=== PATIENT | female | born 1965 | race Caucasian/White ===

== ENCOUNTER 2017-01-14 07:02 | Day surgery (SDC) | payer BC ==
--- NOTE | ~2017-01-14 | EGD ---
EGD REPORT [facility] [address] [address] NAME: GENE OCONNELL : [birth year] STATUS : REG [facility] PAT#: [id number] AGE: 51 ADM/REG DATE : 01/14/17 MR#: [id number] REPORT SERV DATE: 01/14/17 DICTATED BY: JOE RIVERS. DATE: 01/14/17 REPORT STATUS : Draft [facility]ANSCRIBED BY: [facility] DATE: 01/14/17 [facility] Patient Name: Gene Oconnell Date of : 1965 Attending MD: JOE RIVERS MD Procedure Date No Time: 01/14/2017 Procedure: Colonoscopy Indications: Colon cancer screening in patient at increased risk: Family history of colon polyps. Patient Profile: Informed consent was obtained from the patient by me prior to the procedure. Risks, benefits, and alternatives were discussed including the risk of bleeding, perforation, infection, reaction to medicine, missed lesion, and cardiopulmonary complications. Referring MD: ASHLEY MONTAGUE Medicines: Monitored Anesthesia Care Complications: No immediate complications. Procedure: After I obtained informed consent, the scope was passed under direct vision. Throughout the procedure, the patient's blood pressure, pulse, and oxygen saturations were monitored continuously. The PCF H190L [id number] was introduced through the anus and advanced to the cecum, identified by appendiceal orifice and ileocecal valve. The colonoscope was slowly withdrawn with careful examination all mucosal surfaces including specific attention around flexures and tip deflection behind folds; retroflexion performed in rectum. The colonoscopy was performed without difficulty. The patient tolerated the procedure well. The quality of the bowel preparation was adequate. The ileocecal valve, appendiceal orifice and rectum were photographed. Findings: A sessile polyp was found in the proximal ascending colon. The polyp was 10 mm in size. The polyp was removed with a cold snare. Resection and retrieval were complete. A sessile polyp was found in the descending colon. The polyp was 7 mm in size. The polyp was removed with a cold biopsy forceps. Resection and retrieval were complete. Multiple medium-mouthed diverticula were found in the sigmoid colon and in the descending colon. A diffuse area of moderately congested mucosa was found in the sigmoid colon. Internal hemorrhoids were found, and they were mild. EGD REPORT [address] [address] NAME: GENE OCONNELL : [birth year] STATUS : REG [facility]#: [id number] AGE: 51 ADM/REG DATE : 01/14/17 MR#: [id number] REPORT SERV DATE: 01/14/17 DICTATED BY: JOE RIVERS DATE: 01/14/17 REPORT STATUS : Draft TRANSCRIBED BY: [facility] DATE: 01/14/17 Impression: - One 10 mm polyp in the proximal ascending colon. Resected and retrieved. - One 7 mm polyp in the descending colon. Resected and retrieved. - Diverticulosis in the sigmoid colon and in the descending colon. - Congested mucosa in the sigmoid colon. - Internal hemorrhoids. Recommendation: - Patient has a contact number available for emergencies. The signs and symptoms of potential delayed complications were discussed with the patient. Return to normal activities tomorrow. Written discharge instructions were provided to the patient. - Regular diet. - Continue present medications. - Await pathology results. - Repeat colonoscopy for surveillance based on pathology results. - Refer Dr. Jones re: recurrent diverticulitis. - Take probiotic VSL #3 daily. Procedure Code(s): --- Professional --- 36026, Colonoscopy, flexible, proximal to splenic flexure; with removal of tumor(s), polyp(s), or other lesion(s) by snare technique 69651, 59, Colonoscopy, flexible, proximal to splenic flexure; with biopsy, single or multiple Diagnosis Code(s): --- Professional --- D12.4, Benign neoplasm of descending colon D12.2, Benign neoplasm of ascending colon K64.8, Other hemorrhoids K57.30, Diverticulosis of large intestine without perforation or abscess without bleeding K63.89, Other specified diseases of intestine Z12.11, Encounter for screening for malignant neoplasm of colon Z83.71, Family history of colonic polyps CPT copyright 2013 [employer]. All rights reserved. The codes documented in this report are preliminary and upon geometry tutor review may be revised to meet current compliance requirements. EGD REPORT [facility] [address] [address] NAME: GENE OCONNELL : [birth year] STATUS : REG [facility] PAT#: [id number] AGE: 51 ADM/REG DATE : 01/14/17 MR#: [id number] REPORT SERV DATE: 01/14/17 DICTATED BY: JOE RIVERS. DATE: 01/14/17 REPORT STATUS : Draft TRANSCRIBED BY: [employer] [facility] [employer] DATE: 01/14/17 JOE RIVERS MD 01/14/2017 9:15 AM This report has been signed electronically. Number of Addenda: 0 Note Initiated On: 01/14/2017 8:38 AM Scope Withdrawal Time 0 hours 18 minutes 21 seconds [address] [address]
[~2017-01-14 07:02] MED LIST: ADDERALL20 MG PO; CELEXA40 MG PO; FISH-EPA1000 MG PO; LINZESS 290 M290 MCG PO; PROMETRIUM PO; SYN075 PO; ULTRAM50 PO; ZOFRAN4 PO
[2017-02-06] MEDS ORDERED: TESS PO (11:24)
== END 2017-01-14 23:59 | disposition home or self-care (01) ==
LOC: DMU 07:02
PROVIDERS: Internal Medicine Gastroenterology
PROC: 0DBM8ZZ Excision of Descending Colon, Via Natural or Artificial Opening Endoscopic (ICD-10-PCS; principal; 2017-01-14 08:00)
PROC: 0DBK8ZZ Excision of Ascending Colon, Via Natural or Artificial Opening Endoscopic (ICD-10-PCS; 2017-01-14 08:00)
DX: Z12.11 Encounter for screening for malignant neoplasm of colon (principal); D12.2 Benign neoplasm of ascending colon; D12.4 Benign neoplasm of descending colon; K57.30 Diverticulosis of large intestine without perforation or abscess without bleeding; K64.8 Other hemorrhoids; K63.89 Other specified diseases of intestine; J45.909 Unspecified asthma, uncomplicated; E03.9 Hypothyroidism, unspecified; F41.9 Anxiety disorder, unspecified; F32.9 Major depressive disorder, single episode, unspecified; F90.9 Attention-deficit hyperactivity disorder, unspecified type; Z83.71 Family history of colonic polyps; Z85.41 Personal history of malignant neoplasm of cervix uteri; Z88.8 Allergy status to other drugs, medicaments and biological substances; Z91.013 Allergy to seafood; Z79.899 Other long term (current) drug therapy; Z98.890 Other specified postprocedural states
CPT/HCPCS: 88305; J2405

== ENCOUNTER 2017-01-15 23:05 | Emergency (ER) | payer BC ==
[2017-01-15 17:46] LABS: BASOPHILS 0.3 %; BASOPHILS ABSOLUTE 0.01 10/3/uL (0.0-0.16); EOSINOPHILS 0 %; ER CBC TAT 0 Hrs 05 Mins; HEMATOCRIT 41.4 % (36.0-48.0); HEMOGLOBIN 14.2 g/dL (12.0-16.0); IMMATURE GRANULOCYTES 0.5 %; IMMATURE GRANULOCYTES ABSOLUTE 0.02 10/3/uL (0.0-0.11); LYMPHOCYTES 31.7 %; LYMPHOCYTES ABSOLUTE 1.19 10/3/uL (0.67-4.30); MANUAL DIFF NO %; MEAN CORPUS HGB CONC 34.3 g/dL (32.0-36.0); MEAN CORPUSCULAR HEMOGLOB 31.4 pg (26.0-34.0); MEAN CORPUSCULAR VOLUME 91.6 fL (80-100); MEAN PLATELET VOLUME 9.5 fL (9.2-13.0); MONOCYTES 26.9 %; MONOCYTES ABSOLUTE 1.01 10/3/uL (0.21-1.20); NEUTROPHILS 40.6 %; NEUTROPHILS ABSOLUTE 1.52 10/3/uL (2.02-8.40); PLATELET COUNT 205 10/3/uL (150-400); RBC DISTRIBUTION WIDTH 12.3 % (12.0-16.0); RED CELL COUNT 4.52 10/6/uL (4.0-5.6); WHITE BLOOD CELLS 3.8 10/3/uL (4.5-10.5)
[2017-01-15 18:03] LABS: A/G RATIO 0.8 (0.7-1.9); ALBUMIN 3.4 G/DL (3.5-5.0); ALKALINE PHOSPHATASE 148 U/L (45-117); BUN (BLOOD UREA NITROGEN) 13 MG/DL (6-23); CALCIUM, SERUM 8.8 MG/DL (8.5-10.4); CHLORIDE, SERUM 100 MMOL/L (96-112); CO2 (CARBON DIOXIDE) 31 MMOL/L (24-34); CREATININE 0.95 MG/DL (0.55-1.02); GFR AFRICAN AMERICAN 82 ML/MIN (>=60); GFR NON AFRICAN AMERICAN 70 ML/MIN (>=60); GLOBULIN 4.1 G/DL (2.5-4.1); GLUCOSE, SERUM 95 MG/DL (60-99); POTASSIUM, SERUM 4.3 MMOL/L (3.5-5.3); SGOT(AST) 49 U/L (5-40); SGPT(ALT) 55 U/L (5-65); SODIUM, SERUM 138 MMOL/L (135-148); TOTAL BILIRUBIN 0.7 MG/DL (0-1.2); TOTAL PROTEIN 7.5 G/DL (6.0-8.5)
[2017-01-15 18:05] LABS: BAND NEUTROPHILS 1 %; BASOPHILS 1 %; BASOPHILS ABSOLUTE (CALC) 0.04 10/3/uL (0.0-0.16); ER DIFF TAT 0 Hrs 24 Mins; LYMPHOCYTES 33 %; LYMPHOCYTES ABSOLUTE (CALC) 1.25 10/3/uL (0.67-4.30); MONOCYTES 23 %; MONOCYTES ABSOLUTE (CALC) 0.87 10/3/uL (0.21-1.20); NEUTROPHILS ABSOLUTE (CALC) 1.63 10/3/uL (2.02-8.40); PATH REVIEW YES; PLATELET ESTIMATE ADQ (ADEQUATE); SEGMENTED NEUTROPHIL (0) 42 %; TOTAL NUCLEATED CELLS 100
[2017-01-15 23:15] LABS: INFLUENZA A SCREEN NEGATIVE (NEGATIVE)
[2017-01-15 23:17] LABS: INFLUENZA B SCREEN POSITIVE (NEGATIVE)
[2017-02-06] MEDS ORDERED: TESS PO (11:24)
== END 2017-01-16 01:11 | disposition home or self-care (01) ==
LOC: ER 23:05
PROVIDERS: Hospitalist; Specialist
DX: J11.1 Influenza due to unidentified influenza virus with other respiratory manifestations (principal); G89.18 Other acute postprocedural pain; J45.909 Unspecified asthma, uncomplicated; F32.9 Major depressive disorder, single episode, unspecified; F41.9 Anxiety disorder, unspecified; Z85.9 Personal history of malignant neoplasm, unspecified; Z88.8 Allergy status to other drugs, medicaments and biological substances; Z91.013 Allergy to seafood; Z79.899 Other long term (current) drug therapy
CPT/HCPCS: 74150; 80053; 81001; 83690; 85025; 87804; 96374; 99284; J1885; J3010

== ENCOUNTER 2017-02-11 11:05 | Inpatient (IN) | payer BC ==
[2017-02-05 11:12] LABS: HEMATOCRIT 40.4 % (36.0-48.0); HEMOGLOBIN 13.7 g/dL (12.0-16.0)
[2017-02-05 11:32] LABS: BUN (BLOOD UREA NITROGEN) 14 MG/DL (6-23); CALCIUM, SERUM 9.2 MG/DL (8.5-10.4); CHLORIDE, SERUM 105 MMOL/L (96-112); CO2 (CARBON DIOXIDE) 32 MMOL/L (24-34); CREATININE 0.69 MG/DL (0.55-1.02); GFR AFRICAN AMERICAN 118 ML/MIN (>=60); GFR NON AFRICAN AMERICAN 102 ML/MIN (>=60); GLUCOSE, SERUM 97 MG/DL (60-99); POTASSIUM, SERUM 4.2 MMOL/L (3.5-5.3); SODIUM, SERUM 142 MMOL/L (135-148)
--- NOTE | ~2017-02-11 | DS ---
Discharge Summary [facility] [address] [place]. [address] NAME: GENE LOPEZ : 69 STATUS : DIS IN PAT#: [id number] AGE: 51 ADM/REG DATE : 02/11/17 MR#: [id number] REPORT SERV DATE: 02/24/17 DICTATED BY: CAROLINE KOO DATE: 02/23/17 REPORT STATUS : Draft TRANSCRIBED BY: PATEL DATE: 02/23/17 Data Collection from hospitalization DISCHARGE DIAGNOSES: 1. Diverticulitis - complicated - status post laparoscopic low anterior resection. 2. Hypothyroidism. 3. History of endometriosis. 4. History of cervical cancer. 5. History of basal cell carcinoma. CONSULTATIONS: None. PROCEDURES PERFORMED: Laparoscopic low anterior resection with mobilization of splenic flexure on 02/11/2017. PATHOLOGY: Sigmoid colon segmental resection - extensive diverticulosis and chronic diverticulitis with muscular hypertrophy and clinical stricture, no malignancy or dysplasia. Bowel colorectal anastomosis - no specific microscopic abnormality. MEDICATIONS: Tylenol 1000 mg every six hours as needed, Adderall 20 mg twice a day, Tessalon 100 mg three times a day as needed, Celexa 20 mg every morning, Synthroid 75 mcg every morning, Linzess 290 mcg before breakfast, fish oil 1000 mg every morning, Zofran 4 mg every eight hours as needed, Percocet 5/325 one tablet with every four hours as needed, Prometrium 100 mg every morning, and Ultram 50 mg every six hours as needed. CONDITION AT DISCHARGE: Stable. DISPOSITION: The patient was discharged home on a soft diet with activities as instructed. She would follow up with me one to two weeks following discharge. HOSPITAL COURSE: This is a 51-year-old female who has had multiple bouts of diverticulitis and had required hospitalization. She was offered laparoscopic possible open low anterior resection. Treatment options were discussed and it was elected to proceed with surgical intervention. She was in the hospital at this time for further evaluation and treatment. Upon admission, she was taken to the operating room where she underwent the above-mentioned procedure. She tolerated this well, and there were no complications. On postop day #1, she was awake and alert. She was comfortable. Her respirations were nonlabored. She was working on incentive spirometry. The Brito catheter was going to be removed. TILE LAYER DRAINAGE was discontinued. On postop day #2, she was trying not to take narcotics. She did complain of gas pain and right shoulder pain. We encouraged her to ambulate. She was placed on a soft diet. Discharge planning was performed. On 02/14/2017, she was passing flatus. She was alert and cooperative. The TILE LAYER DRAINAGE was discontinued. Her diet was advanced. Discharge instructions were given. Due to her improved and stable condition, she was discharged home with the above-stated instructions. Information collected by: Lula Salomon Discharge Summary [address] [facility] [place] [address] NAME: GENE LOPEZ : [birth year] STATUS : DIS IN PAT#: [id number] AGE: 51 ADM/REG DATE : 02/11/17 MR#: [id number] REPORT SERV DATE: 02/24/17 DICTATED BY: CAROLINE KOO DATE: 02/23/17 REPORT STATUS : Draft TRANSCRIBED BY: PATEL DATE: 02/23/17 I submit the above information as my discharge summary. TG/PATEL Annalise Koo M.D. / [id number] CC: Desire Samaniego JENNY BRADSHAW
--- NOTE | ~2017-02-11 | OP ---
Record Of Operation [facility] [address] [facility] [place]. [address] NAME: GENE OCONNELL : [birth year] STATUS : ADM IN [facility]#: [id number] AGE: 51 ADM/REG DATE : 02/11/17 MR#: [id number] REPORT SERV DATE: 02/12/17 DICTATED BY: CAROLINE KOO DATE: 02/12/17 REPORT STATUS : Draft TRANSCRIBED BY: MODL DATE: 02/12/17 DATE OF PROCEDURE: 02/11/2017 PREOPERATIVE DIAGNOSIS: Sigmoid diverticulosis. POSTOPERATIVE DIAGNOSIS: Sigmoid diverticulosis. PROCEDURE: Laparoscopic low anterior resection with mobilization of the splenic flexure. ATTENDING PHYSICIAN: Dr. Abran Koo. RESIDENT: Dr. Reema Mabry. ANESTHESIA: General endotracheal anesthesia with TAP blocks provided by the anesthesia service. FLUIDS: 1800 mL. EBL: 75 mL. URINE OUTPUT: 100 mL. SPECIMEN: Rectosigmoid colon. CULTURES: None. COMPLICATIONS: None apparent. INDICATIONS: Mrs. Oconnell is a 51-year-old female, who had multiple bouts of diverticulitis for which she required hospitalization. She was offered laparoscopic possible open low anterior resection. Preoperatively, benefits, alternatives, and risks, including bleeding, infection, risk of damage to adjacent structures, and possible need for future procedures as well as risk of injury to the ureter were all described in detail preoperatively as well as risks of general endotracheal anesthesia including but not limited to, heart attack, stroke, and . After having all questions answered, the patient voiced understanding and desired to proceed with surgery. PROCEDURE IN DETAIL: The patient was identified preoperatively as Gene Oconnell. It was determined that the appropriately signed documents including history and physical and operative permit were secured on the chart. She was taken to the operating room and placed supine on the operating table where general endotracheal anesthesia was induced by the anesthesia service to monitor the patient throughout the procedure. The lower extremities were placed in stirrups and well padded. The abdomen and perineum were prepped and draped, and an appropriate time-out procedure wherein the patient, procedure site, position, allergies, equipment, and administration of antibiotics were all verified prior to beginning. A small incision was made in the umbilicus. Sergio technique was utilized. A Record Of Operation [facility] [address] [facility] [place]. [address] NAME: GENE OCONNELL : [birth year] STATUS : ADM IN PAT#: [id number] AGE: 51 ADM/REG DATE : 02/11/17 MR#: [id number] REPORT SERV DATE: 02/12/17 DICTATED BY: CAROLINE KOO DATE: 02/12/17 REPORT STATUS : Draft TRANSCRIBED BY: PATEL DATE: 02/12/17 12 mm trocar was placed under direct vision. Insufflation was obtained to 15 mmHg pressure and the patient tolerated this well. Additional trocars were placed in the following locations: A 12 mm in the right lower quadrant, a 5 mm in the epigastrium, a 5 mm in the suprapubic region, and a 5 mm in the left mid abdomen. The sigmoid colon was mobilized from the sigmoid recess using cautery along the white line of Toldt. The left ureter was identified and protected from harm. The sigmoid mesentery was then divided starting at the identified proximal resection margin where diverticulitis was not seen any more toward the junction of the upper rectum using a LigaSure device. The [place] 60 stapler was then placed and the junction of the upper and mid rectum and this area was stapled and divided. Splenic flexure was then mobilized using electrocautery and the omentum was taken off the transverse colon. There were significant amount of adhesions here between the omentum and the mesentery, and this required additional mobilization with a combination of electrocautery and LigaSure device. The umbilical port site was enlarged and a wound protector was used and the specimen was brought out of the site. Blood supply was checked at the midportion of the specimen and it was excellent. The mesentery was then divided at the planned site of the proximal resection margin. Jose clamp was placed across this and we isolated the area with towels. The specimen was then divided with a knife and a 2-0 Prolene pursestring suture was used to secure a 29 anvil. The colon was then replaced into the abdomen. Pneumoperitoneum was achieved and the 29 EEA stapler was placed into the anus up through the rectum and the anastomosis was completed firing the stapler. There were two complete rings, and an air insufflation test revealed no leak. There was no tension and hemostasis was ensured. The right lower quadrant fascial site was closed with 0 Vicryl and the umbilical extraction site was closed with PDS. Skin sites were closed in a subcuticular fashion with Monocryl. Dressings were applied. All counts of needles, sponges, and instruments were correct at the end of the case. Dr. Koo was present and scrubbed for the entirety of the surgical procedure. No intraoperative complications were noted. Sedation was stopped. The patient was allowed to awaken and extubated in the operating room, and taken to the postanesthesia care unit in good condition after having tolerated the procedure well. DICTATED BY: MD MARK Angulo/PATEL Annalise Koo M.D. / [id number] CC: Desire Samaniego Jenny Bradshaw
[~2017-02-11 11:05] MED LIST changes: +TESS PO
[2017-02-12 05:24] LABS: BASOPHILS 0 %; EOSINOPHILS 0 %; IMMATURE GRANULOCYTES 0.2 %; IMMATURE GRANULOCYTES ABSOLUTE 0.02 10/3/uL (0.0-0.11); LYMPHOCYTES 10.5 %; LYMPHOCYTES ABSOLUTE 0.98 10/3/uL (0.67-4.30); MEAN CORPUS HGB CONC 34.8 g/dL (32.0-36.0); MEAN CORPUSCULAR HEMOGLOB 31.6 pg (26.0-34.0); MEAN CORPUSCULAR VOLUME 90.8 fL (80-100); MONOCYTES 10.1 %; MONOCYTES ABSOLUTE 0.94 10/3/uL (0.21-1.20); NEUTROPHILS 79.2 %; NEUTROPHILS ABSOLUTE 7.35 10/3/uL (2.02-8.40); PLATELET COUNT 216 10/3/uL (150-400); RBC DISTRIBUTION WIDTH 12.6 % (12.0-16.0)
[2017-02-12 05:26] LABS: HEMATOCRIT 34.5 % (36.0-48.0); MANUAL DIFF NO %; WHITE BLOOD CELLS 9.3 10/3/uL (4.5-10.5)
[2017-02-12 05:40] LABS: CALCIUM, SERUM 8.4 MG/DL (8.5-10.4); CHLORIDE, SERUM 103 MMOL/L (96-112); CO2 (CARBON DIOXIDE) 28 MMOL/L (24-34); CREATININE 0.75 MG/DL (0.55-1.02); GFR AFRICAN AMERICAN 108 ML/MIN (>=60); GFR NON AFRICAN AMERICAN 94 ML/MIN (>=60); SODIUM, SERUM 140 MMOL/L (135-148)
[2017-02-12 05:42] LABS: BUN (BLOOD UREA NITROGEN) 10 MG/DL (6-23); GLUCOSE, SERUM 135 MG/DL (60-99)
[2017-02-14] MEDS ORDERED: ACET500CAP PO (14:25)
[2017-02-14] MEDS ORDERED: PCET PO (14:27)
== END 2017-02-14 15:27 | disposition home or self-care (01) | DRG 330 ==
LOC: SDC/OF 11:05 → PACU 16:35 → 5SO 18:03
PROVIDERS: Colon & Rectal Surgery
PROC: 0DBN0ZZ Excision of Sigmoid Colon, Open Approach (ICD-10-PCS; 2017-02-11)
PROC: 3E0T3CZ (ICD-10-PCS; 2017-02-11)
PROC: 0DBP4ZZ Excision of Rectum, Percutaneous Endoscopic Approach (ICD-10-PCS; principal; 2017-02-11 12:45)
DX: K57.52 Diverticulitis of both small and large intestine without perforation or abscess without bleeding (principal); E03.9 Hypothyroidism, unspecified; Z88.1 Allergy status to other antibiotic agents; Z88.8 Allergy status to other drugs, medicaments and biological substances; Z91.013 Allergy to seafood; Z85.41 Personal history of malignant neoplasm of cervix uteri; Z80.3 Family history of malignant neoplasm of breast; Z80.0 Family history of malignant neoplasm of digestive organs; Z82.49 Family history of ischemic heart disease and other diseases of the circulatory system; Z83.71 Family history of colonic polyps
CPT/HCPCS: 80048; 85014; 85018; 85025; 88307; 93005; A9270-GY; C9113; J0690; J1170; J2250; J2370; J2405; J2710; J2795; J3010